=== PATIENT | male | born 1990 | race Caucasian/White ===

== ENCOUNTER 2019-03-29 13:20 | Emergency (ER) | payer MEDICAID ==
[~2019-03-29] VITALS: Ht 172.7 cm; Wt 75.0 kg
[2019-03-29] MEDS ORDERED: SODIUM CHLORIDE 0.9% 1,000 ML IV ONE (15:10)
[2019-03-29 15:14] LABS: BASOPHILS % 0.3 % (0.0-2.0); EOSINOPHILS % 0.4 % (0.0-5.0); HEMATOCRIT. 43.4 % (42.0-52.0); HEMOGLOBIN. 14.8 g/dL (14.0-18.0); LYMPHOCYTES % 34.1 % (20.0-50.0); MEAN CORPUSCULAR HEMOGLOBIN 30.2 pg (28.0-32.0); MEAN CORPUSCULAR VOLUME 88.4 fL (80.0-94.0); MEAN PLATELET VOLUME 8.3 fl (7.4-10.4); MONOCYTES % 7.7 % (2.0-8.0); NEUTROPHILS % 57.5 % (40.0-76.0); PLATELET 193 x1000/uL (130-400); RED BLOOD CELL COUNT 4.91 mill/uL (4.7-6.1); RED CELL DISTRIBUTION WIDTH 14.1 % (11.6-14.6)
[2019-03-29 15:15] LABS: CHLORIDE 103 mEq/L (98-107)
[2019-03-29] MEDS ORDERED: LORAZEPAM 2MG/ML CPJ IV ONE (15:15)
[2019-03-29] MEDS ORDERED: KETOROLAC 30MG/ML VIAL IV ONE (15:15)
[2019-03-29] MEDS ORDERED: ENALAPRIL 2.5MG TABLET PO ONE (15:15)
[2019-03-29 15:19] LABS: ETHANOL BLOOD < 10 mg/dL
[2019-03-29 15:22] LABS: PARTIAL THROMBOPLASTIN TIME 28.7 sec (23.4-31.0); PROTHROMBIN TIME 10.7 sec (9.6-11.0)
[2019-03-29 16:00] VITALS: BP 147/89
== END 2019-03-29 17:17 | disposition left against medical advice (07) ==
LOC: ER 13:20
DX: R07.89 Other chest pain (principal); R51 Headache; I10 Essential (primary) hypertension; F10.10 Alcohol abuse, uncomplicated; Y90.0 Blood alcohol level of less than 20 mg/100 ml
CPT/HCPCS: 36415; 70450; 71045; 80053; 80320; 83880; 84484; 85025; 85610; 85730; 93005; 96361; 96374; 96375; 99284; J1885; J2060; J7030; G0480

== ENCOUNTER 2020-08-23 23:58 | Emergency (ER) | payer MEDICAID ==
[~2020-08-23] VITALS: Ht 172.7 cm; Wt 91.0 kg
[2020-08-24] MEDS ORDERED: SODIUM CHLORIDE 0.9% 1,000 ML IV ONE (01:15)
[2020-08-24 01:57] LABS: CHLORIDE 104 mEq/L (98-107)
[2020-08-24 02:01] LABS: ETHANOL BLOOD < 10 mg/dL
[2020-08-24 02:14] LABS: CLARITY URINE CLEAR (CLEAR); COLOR URINE DARK YELLOW (YELLOW); KETONES URINE 1+ (NEGATIVE); LEUKOCYTE ESTERASE URINE TRACE (NEGATIVE); NITRITE URINE POSITIVE (NEGATIVE); OCCULT BLOOD URINE NEGATIVE (NEGATIVE); PH URINE 5.5 (4.5-8.0); PROTEIN URINE 1+ (NEGATIVE)
[2020-08-24 02:25] LABS: *AMPHETAMINES SCREEN URINE PRESUMTIVE POSITIVE (NEGATIVE); *BARBITURATES SCREEN URINE NEGATIVE (NEGATIVE); *BENZODIAZEPINES SCREEN URINE NEGATIVE (NEGATIVE); *COCAINE SCREEN URINE NEGATIVE (NEGATIVE); METHADONE URINE SCREEN NEGATIVE (NEGATIVE); OPIATES URINE SCREEN NEGATIVE (NEGATIVE); PHENCYCLIDINE URINE SCREEN NEGATIVE (NEGATIVE)
[2020-08-24 02:26] LABS: CANNABINOID URINE SCREEN PRESUMTIVE POSITIVE (NEGATIVE)
[2020-08-24 02:29] LABS: BASOPHILS % 0.4 % (0.0-2.0); EOSINOPHILS % 0.3 % (0.0-5.0); HEMATOCRIT. 41.1 % (42.0-52.0); LYMPHOCYTES % 24.8 % (20.0-50.0); MEAN CORPUSCULAR HEMOGLOBIN 28.9 pg (28.0-32.0); MEAN CORPUSCULAR VOLUME 85.1 fL (80.0-94.0); MEAN PLATELET VOLUME 9.5 fl (7.4-10.4); MONOCYTES % 8.2 % (2.0-8.0); NEUTROPHILS % 66.3 % (40.0-76.0); PLATELET 220 x1000/uL (130-400); RED BLOOD CELL COUNT 4.84 mill/uL (4.7-6.1); RED CELL DISTRIBUTION WIDTH 14.2 % (11.6-14.6)
[2020-08-24] MEDS ORDERED: CEFTRIAXONE 1 G PREMIX 50 ML IV NR (04:00)
[2020-08-24 06:15] VITALS: BP 131/74
== END 2020-08-24 06:25 | disposition home or self-care (01) ==
LOC: ER 23:58
DX: N39.0 Urinary tract infection, site not specified (principal); F15.10 Other stimulant abuse, uncomplicated; F12.10 Cannabis abuse, uncomplicated; R00.0 Tachycardia, unspecified; H57.04 Mydriasis; R61 Generalized hyperhidrosis
CPT/HCPCS: 36415; 80053; 80305; 80307; 80320; 80329; 81003; 82140; 84443; 85025; 93005; 96361; 96374; 99285; J0696; J7030; G0480